=== PATIENT | male | born 1975 | race Caucasian/White ===

== ENCOUNTER → 2017-10-19 14:54 | Outpatient (POV) | payer OTHER, SELFPAY | PROVIDERS: Visit Provider Dermatology | DX: Z00.00 Encounter for general adult medical examination without abnormal findings (principal) ==

== ENCOUNTER → 2020-04-21 08:35 | Outpatient (POV) | payer OTHER, SELFPAY | PROVIDERS: Visit Provider Dermatology | DX: Z00.00 Encounter for general adult medical examination without abnormal findings (principal) ==

== ENCOUNTER 2021-01-02 23:14 | Emergency (ER) | payer BC, SELFPAY ==
[2021-01-02 23:25] VITALS: BMI 27.1
--- NOTE | 2021-01-02 23:34 | ECG_ITS ---
APPROVED REPORT Exam: Resting ECG HR:54 bpm ECG Measurements Heart Rate 54 AXES HI 130 P 24 QRSd 98 QRS 34 QT 424 T 41 QTc 402 Conclusion Sinus bradycardia Otherwise normal ECG Electronically signed by : Júnior Pollard MD 01/04/2021 17:59:09
[2021-01-02 23:40] LABS: Basophils # 0.1 K/mm3 (0-0.2); Eosinophils # 0.2 K/mm3 (0.0-0.4); Eosinophils % 1.3 % (0.1-12.0); Hematocrit 46.6 % (42.0-52.0); Hemoglobin 15.8 g/dL (14.1-18.0); Lymphocytes # 3.7 K/mm3 (0.7-4.5); Lymphocytes % 31.3 % (10-50); Mean Corpuscular HGB Conc 33.9 g/dL (31.8-35.4); Mean Corpuscular Hemoglobin 31.8 pg (27.0-31.2); Mean Corpuscular Volume 93.7 fl (80-94); Mean Platelet Volume 8.6 fl (7.4-10.4); Monocytes # 0.6 K/mm3 (0.1-1.0); Monocytes % 4.8 % (1.7-9.3); Neutrophils # 7.2 K/mm3 (1.8-7.8); Neutrophils % 61.5 % (37.0-80.0); Platelet Count 336 K/mm3 (142-424); Red Blood Count 4.97 M/mm3 (4.60-6.20); Red Cell Distribution Width 12.8 % (11.5-17.5); White Blood Count 11.7 K/mm3 (4.8-10.8)
[2021-01-02 23:45] VITALS: BP 137/88; PULSE 56; RESP 16; TEMP 36.6; O2SAT 98; BMI 29.1
[2021-01-02 23:45] LABS: Alanine Aminotransferase 40 U/L (12-78); Albumin Level 4.5 g/dl (3.5-5.0); Albumin/Globulin Ratio 1.5 (1.1-1.8); Alkaline Phosphatase 51 U/L (38-126); Anion Gap 10.6 mEq/L (5-15); Aspartate Amino Transferase 45 U/L (17-59); Bilirubin,Total 0.7 mg/dl (0.2-1.3); Blood Urea Nitrogen 15 mg/dl (9-20); Calcium 9.3 mg/dl (8.4-10.2); Carbon Dioxide 32 mmol/L (22.0-30.0); Chloride 103 mmol/L (98-107); Creatinine Clearance Estimated 169 mL/min (50-200); Estimated Glomerular Filt Rate 121 ml/min (>60); GFR (African American) 147 ML/MIN (>60); Glucose 95 mg/dl (74-100); Potassium 3.6 mmoL/L (3.5-5.1); Sodium 142 mmol/L (136-145); Total Protein,Serum 7.5 g/dl (6.3-8.2)
[2021-01-02 23:52] LABS: Lipase 56 U/L (23-300)
[2021-01-02 23:54] LABS: Amylase 85 U/L (30-110)
[2021-01-03] LABS: C-Reactive Protein 2.6 mg/L (0-4)
--- NOTE | 2021-01-03 00:01 | CT_ITS ---
PROCEDURE INFORMATION: Exam: CTA Chest With Contrast Exam date and time: 01/03/2021 12:01 AM Age: 45 years old Clinical indication: Other: Epigastric pain into chest; Additional info: Epigastric pain, R/O dissection TECHNIQUE: Imaging protocol: Computed tomographic angiography of the chest with contrast. 3D rendering (Not supervised by radiologist): MIP and/or 3D reconstructed images were created by the technologist. Radiation optimization: All CT scans at this facility use at least one of these dose optimization techniques: automated exposure control; mA and/or kV adjustment per patient size (includes targeted exams where dose is matched to clinical indication); or iterative reconstruction. Contrast material: ISOVUE 370; Contrast volume: 100 ml; Contrast route: INTRAVENOUS (IV); COMPARISON: No relevant prior studies available. FINDINGS: Pulmonary arteries: Normal. No pulmonary emboli. Aorta: The ascending thoracic aorta appears mildly ectatic, measuring up to 3.7 cm in caliber, although some motion artifact is also present (and measurements could be slightly affected). No dissection. Thyroid: Thyroid gland appears heterogeneous and may contain nodules, but is not well evaluated due to artifact. Lungs: Partially calcified 1.6 x 1.1 cm nodule or cluster of nodules in the right middle lobe, compatible with old granulomatous disease. No consolidation or evidence of pneumonia. Pleural spaces: Unremarkable. No pneumothorax. No pleural effusion. Heart: Normal heart size. No pericardial effusion. No appreciable coronary arterial calcification. Lymph nodes: Calcified subcarinal and right hilar lymph nodes compatible old granulomas disease. There are several prominent subcentimeter lymph nodes in the upper mediastinum near the inferior pole of the thyroid, nonspecific. Liver: Liver is enlarged measuring 19 cm in craniocaudal dimension. Gallbladder and bile ducts: Cholelithiasis. No gallbladder wall thickening. Bones/joints: Hemangioma in the T8 vertebral body. Soft tissues: Unremarkable. IMPRESSION: 1. Mild fusiform ectasia of the ascending thoracic aorta measuring up to 3.7 cm in caliber. No evidence of acute aortic syndrome. 2. No pulmonary embolus. 3. Possible thyroid nodularity, not well evaluated due to artifact. Given presence of several subcentimeter lymph nodes in the upper mediastinum near the inferior pole of the thyroid, further evaluation with nonemergent thyroid ultrasound is recommended. COMMENTS: Consistent with the [employer]'s Incidental Findings Committee white paper (J Am Aggie Radiol 2015): In patients aged 35 years and older with an incidental thyroid nodule equal to or greater than 1.[address], MRI or extrathyroidal US, further evaluation with dedicated thyroid US is recommended for patients with normal life expectancy and without comorbidities. For smaller nodules without suspicious features, no further evaluation or follow up is recommended.
--- NOTE | 2021-01-03 00:02 | XR_ITS ---
PROCEDURE INFORMATION: Exam: XR Chest Exam date and time: 01/03/2021 12:02 AM Age: 45 years old Clinical indication: Pain; Chest pressure; Additional info: Epigastric pain TECHNIQUE: Imaging protocol: XR of the chest. Views: 2 views. COMPARISON: CT ANGIO CHEST 01/03/2021 12:04 AM FINDINGS: Lungs: No airspace consolidation. No pulmonary edema. There is a 1 cm nodule in the right mid lung compatible with the granuloma seen on chest CT. Pleural spaces: No pleural effusion. No pneumothorax. Heart/Mediastinum: Normal heart size. Bones/joints: Unremarkable. IMPRESSION: No acute finding.
--- NOTE | 2021-01-03 00:03 | CT_ITS ---
PROCEDURE INFORMATION: Exam: CT Abdomen And Pelvis With Contrast Exam date and time: 01/03/2021 12:03 AM Age: 45 years old Clinical indication: Abdominal pain; Epigastric; Additional info: Epigastric pain TECHNIQUE: Imaging protocol: Computed tomography of the abdomen and pelvis with contrast. Radiation optimization: All CT scans at this facility use at least one of these dose optimization techniques: automated exposure control; mA and/or kV adjustment per patient size (includes targeted exams where dose is matched to clinical indication); or iterative reconstruction. Contrast material: ISOVUE; Contrast volume: 100 ml; Contrast route: IV; COMPARISON: No relevant prior studies available. FINDINGS: Liver: Liver is enlarged measuring 19 cm in craniocaudal dimension. Liver appears homogeneous, and does not meet attenuation criteria for steatosis on this study. Gallbladder and bile ducts: Cholelithiasis. No gallbladder wall thickening. No biliary dilation. Pancreas: Unremarkable. No main pancreatic duct dilation. Spleen: Mild splenomegaly. Spleen measures slightly greater than 12 cm in craniocaudal dimension. Adrenal glands: Unremarkable. Kidneys and ureters: A few subcentimeter low-attenuation left renal lesions are too small for definitive evaluation, but statistically most likely benign cysts. No hydronephrosis. No urinary tract calculi are seen. Stomach and bowel: No small bowel dilation or obstruction. [id number] amount of solid stool throughout the colon, without evidence of wall thickening. Appendix: Appendectomy. Intraperitoneal space: No pneumoperitoneum. No ascites. Vasculature: No abdominal aortic aneurysm. No dissection. Scattered mild atherosclerotic plaque. Lymph nodes: Subtle haziness of the central mesentery, with a few prominent, but subcentimeter lymph nodes, suggesting mild mesenteric panniculitis. No pathologically enlarged lymph nodes in the abdomen/pelvis. Urinary bladder: Bladder is partially decompressed. Reproductive: Unremarkable as visualized. Bones/joints: No acute fracture. Mild lower lumbar degenerative changes. Soft tissues: Small fat containing right inguinal and umbilical hernias. IMPRESSION: 1. No acute abnormality or specific etiology for symptoms identified. 2. Cholelithiasis. 3. Hepatomegaly. COMMENTS: Consistent with the [employer]'s Incidental Findings Committee white paper (J Am Aggie Radiol 2018): Any incidental renal lesion less than 1 cm or classified as too small to characterize, or any incidental cystic renal lesion characterized as simple-appearing, is likely benign. No follow-up imaging is recommended for these lesions per consensus recommendations based on imaging criteria.
[2021-01-03 00:07] LABS: Erythrocyte Sedimentation Rate 12 mm/hr (0-15)
[2021-01-03 00:10] LABS: Troponin I < 0.01 ng/ml (0.00-0.034)
[2021-01-03 00:14] LABS: Procalcitonin 0.057 ng/mL (0.0-2.0)
--- NOTE | 2021-01-03 01:25 | HMH.EDNVD ---
ED Disposition Clinical Impression: Abdominal pain Qualifiers: Abdominal location: epigastric Qualified Code(s): R10.13 - Epigastric pain Cholelithiasis Qualifiers: Cholelithiasis location: gallbladder Cholecystitis presence: without cholecystitis Biliary obstruction: without biliary obstruction Qualified Code(s): K80.20 - Calculus of gallbladder without cholecystitis without obstruction Disposition: Home, Self-Care Condition on Discharge: Good Instructions: DI for Gallstones Additional Instructions: see pcp for gb and gerd eval Prescriptions: Pantoprazole Sodium [Protonix 40mg tablet] 40 mg PO DAILY #30 tab Transmission Status: Pending to [facility] Referrals: Tigre Montgomery [Primary Care Provider] - - Critical Care Critical Care Time: No Attestation: On 01/02/21, the high probability of a clinically significant, sudden or life threatening deterioration of the following system(s) required my full and direct attention, intervention and personal management. The time I documented below is in addition to time spent performing reported procedures but includes the following listed in this critical care notation. Medical Decision Making - Medical Records Medical records reviewed: Yes: I reviewed the patient's medical records. - Seb Inquiry Pt receiving controlled substance: No Vital Signs: 01/02/21 23:45 Temperature 97.8 F Temperature Source Oral Pulse Rate [Apical] 56 L Respiratory Rate 16 Blood Pressure [Right Arm] 137/88 Blood Pressure Mean [Right Arm] 104 Blood Pressure Source [Right Arm] Automatic Cuff Blood Pressure Position [Right Arm] Sitting 02 Sat by Pulse Oximetry 98 Oxygen Delivery Method Room Air - Lab Data Lab results reviewed: Yes: I reviewed the patient's lab results. Lab Results 01/02/21 23:30: WBC 11.7 H, RBC 4.97, Hgb 15.8, Hct 46.6, MCV 93.7, MCH 31.8 H, MCHC 33.9, RDW 12.8, Plt Count 336, MPV 8.6, Neut % (Auto) 61.5, Lymph % (Auto) 31.3, [place] % (Auto) 4.8, Eos % (Auto) 1.3, Baso % (Auto) 1.0, Neut # (Auto) 7.2, Lymph # (Auto) 3.7, [place] # (Auto) 0.6, Eos # (Auto) 0.2, Baso # (Auto) 0.1 10/16/21 23:30: Sodium 142, Potassium 3.6, Chloride 103, Carbon Dioxide 32 H, Anion Gap 10.6, BUN 15, Creatinine 0.70, Estimated Creat Clear 169, Estimated GFR 121, Est GFR ( Amer) 147, Glucose 95, Calcium 9.3, Total Bilirubin 0.7, AST 45, ALT 40, Alkaline Phosphatase 51, Total Protein 7.5, Albumin 4.5, Globulin 3.0, Albumin/Globulin Ratio 1.5 01/02/21 23:30: ESR 12 01/02/21 23:30: Troponin I < 0.01, C-Reactive Protein 2.6, Amylase 85, Procalcitonin 0.057 01/02/21 23:30: Lipase 56 Result diagrams: 01/02/21 23:30 01/02/21 23:30 Orders (Tests/Meds): ED MEDICATIONS Generic Name Dose Route Start Last Admin Trade Name Freq PRN Reason Stop Dose Admin Sodium Chloride 8 ml 01/02/21 23:37 Sodium Chloride 0.9% 10ml Vial IV 02/01/21 23:36 NEEDED PRN dilute pepcid Discontinued Medications Generic Name Dose Route Start Last Admin Trade Name Freq PRN Reason Stop Dose Admin Famotidine 20 mg 01/02/21 23:37 01/02/21 23:39 Famotidine 20mg/2ml Vial IV 01/02/21 23:38 20 mg ONCE ONE Administration Iopamidol 100 ml 01/03/21 00:29 01/03/21 00:30 Iopamidol-370 (76%);100ml Bottle IV 01/03/21 00:30 100 ml ONCE ONE Administration Metoclopramide HCl 10 mg 01/02/21 23:37 01/02/21 23:39 Metoclopramide Hcl 10mg/2ml Vial IVP 01/02/21 23:38 10 mg ONCE ONE Administration Sodium Chloride 40 ml 01/03/21 00:29 01/03/21 00:30 0.9 % Sodium Chloride 50 Ml Vial IV 01/03/21 00:30 40 ml ONCE ONE Administration Sodium Chloride 10 ml 01/03/21 00:29 01/03/21 00:30 Sodium Chloride 0.9% 10ml Syr (Rad Only) IV 01/03/21 00:30 10 ml ONCE ONE Administration ORDERS Category Date Time Status Troponin I Q3H Lab 01/03/21 02:45 Ordered Troponin I Q3H Lab 01/03/21 05:45 Ordered - Radiology Data #1 Image(s): Chest
[2021-01-03 01:47] VITALS: BP 124/82; PULSE 60; RESP 16; TEMP 36.6; O2SAT 98
== END 2021-01-03 01:48 | disposition home or self-care (01) ==
PROVIDERS: Emergency Provider Emergency Medicine; PCP Family Medicine
DX: K80.20 Calculus of gallbladder without cholecystitis without obstruction (principal)
CPT/HCPCS: 71046; 71275; 74177; 80053; 82150; 83690; 84145; 84484; 85025; 85651; 86140; 93005; 96374; 96375; 99283; Q9967

== ENCOUNTER → 2021-03-29 08:17 | Outpatient (CLI) | payer BC, SELFPAY | PROVIDERS: PCP Family Medicine; Visit Provider Nurse Practitioner | DX: Z20.822 Contact with and (suspected) exposure to COVID-19 (principal) | CPT/HCPCS: C9803; U0003; U0005 ==

== ENCOUNTER → 2021-04-14 07:05 | Outpatient (CLI) | payer BC, SELFPAY ==
--- NOTE | 2021-04-14 07:16 | US_ITS ---
FINAL REPORT CLINICAL HISTORY: EPIGASTRIC PAIN,GALLSTONES FINDINGS: ULTRASOUND RIGHT UPPER QUADRANT Sonographic imaging of the right upper quadrant was obtained. The pancreas is partially obscured. The liver is unremarkable. There are multiple gallstones. There is no gallbladder wall thickening. There is no biliary ductal dilatation. The common duct is dilated at 9 mm. Limited images of the right kidney are unremarkable. IMPRESSION: Multiple gallstones in the gallbladder. 9 mm dilated common duct. Choledocholithiasis cannot be excluded. Reviewed, Interpreted and Dictated by Aaron Bradley MD Transcribed by Meg Small Authenticated by Aaron Bradley MD on 04/14/2021 11:33:21 AM [facility]
[2021-04-14 07:51] LABS: Basophils # 0.1 K/mm3 (0-0.2); Basophils % 1.5 % (0.1-2.0); Eosinophils # 0.1 K/mm3 (0.0-0.4); Eosinophils % 1.9 % (0.1-12.0); Hematocrit 50.8 % (42.0-52.0); Hemoglobin 16.6 g/dL (14.1-18.0); Lymphocytes # 3.5 K/mm3 (0.7-4.5); Lymphocytes % 48.5 % (10-50); Mean Corpuscular HGB Conc 32.6 g/dL (31.8-35.4); Mean Corpuscular Hemoglobin 31.6 pg (27.0-31.2); Mean Corpuscular Volume 96.9 fl (80-94); Mean Platelet Volume 8.4 fl (7.4-10.4); Monocytes # 0.5 K/mm3 (0.1-1.0); Monocytes % 6.4 % (1.7-9.3); Neutrophils % 41.6 % (37.0-80.0); Platelet Count 333 K/mm3 (142-424); Red Blood Count 5.25 M/mm3 (4.60-6.20); Red Cell Distribution Width 12.4 % (11.5-17.5); White Blood Count 7.1 K/mm3 (4.8-10.8)
[2021-04-14 08:41] LABS: Alanine Aminotransferase 19 U/L (12-78); Albumin Level 4.6 g/dl (3.5-5.0); Albumin/Globulin Ratio 1.7 (1.1-1.8); Alkaline Phosphatase 47 U/L (38-126); Amylase 49 U/L (30-110); Anion Gap 9.3 mEq/L (5-15); Aspartate Amino Transferase 21 U/L (17-59); Blood Urea Nitrogen 15 mg/dl (9-20); Calcium 9.3 mg/dl (8.4-10.2); Carbon Dioxide 34 mmol/L (22.0-30.0); Chloride 103 mmol/L (98-107); Chol/HDL Ratio 7.6 (1-3.5); Cholesterol 212 mg/dl (140-200); Estimated Glomerular Filt Rate 104 ml/min (>60); GFR (African American) 126 ML/MIN (>60); Globulin 2.7 g/dL (1.3-3.2); Glucose 92 mg/dl (74-100); HDL Cholesterol 28 mg/dl (40-60); Lipase 52 U/L (23-300); Potassium 4.3 mmoL/L (3.5-5.1); Sodium 142 mmol/L (136-145); Total Protein,Serum 7.3 g/dl (6.3-8.2); Triglycerides 127 mg/dl (30-150); VLDL Cholesterol 25 mg/dL (0-40)
[2021-04-14 08:52] LABS: Direct LDL Cholesterol 155.45 mg/dL (100-129)
== END ==
PROVIDERS: PCP Family Medicine; Visit Provider Family Medicine
DX: R10.13 Epigastric pain (principal); K80.20 Calculus of gallbladder without cholecystitis without obstruction; Z13.220 Encounter for screening for lipoid disorders
CPT/HCPCS: 36415; 76705; 80053; 80061; 82150; 83690; 85025

== ENCOUNTER → 2021-05-28 13:36 | Outpatient (CLI) | payer BC, SELFPAY ==
[2021-05-28 14:47] LABS: Basophils # 0.1 K/mm3 (0-0.2); Basophils % 1.5 % (0.1-2.0); Eosinophils # 0.1 K/mm3 (0.0-0.4); Eosinophils % 1.4 % (0.1-12.0); Hematocrit 46.6 % (42.0-52.0); Hemoglobin 15.4 g/dL (14.1-18.0); Lymphocytes # 2.8 K/mm3 (0.7-4.5); Lymphocytes % 46.4 % (10-50); Mean Corpuscular HGB Conc 33.1 g/dL (31.8-35.4); Mean Corpuscular Hemoglobin 30.7 pg (27.0-31.2); Monocytes # 0.3 K/mm3 (0.1-1.0); Monocytes % 5.4 % (1.7-9.3); Neutrophils # 2.7 K/mm3 (1.8-7.8); Neutrophils % 45.2 % (37.0-80.0); Platelet Count 323 K/mm3 (142-424); Red Blood Count 5.01 M/mm3 (4.60-6.20); Red Cell Distribution Width 12.6 % (11.5-17.5)
[2021-05-28 15:49] LABS: Alanine Aminotransferase 21 U/L (12-78); Albumin Level 4.5 g/dl (3.5-5.0); Albumin/Globulin Ratio 1.8 (1.1-1.8); Alkaline Phosphatase 47 U/L (38-126); Aspartate Amino Transferase 21 U/L (17-59); Bilirubin,Total 0.8 mg/dl (0.2-1.3); Blood Urea Nitrogen 11 mg/dl (9-20); Calcium 8.9 mg/dl (8.4-10.2); Carbon Dioxide 31 mmol/L (22.0-30.0); Chloride 103 mmol/L (98-107); Estimated Glomerular Filt Rate 121 ml/min (>60); GFR (African American) 147 ML/MIN (>60); Globulin 2.5 g/dL (1.3-3.2); Glucose 81 mg/dl (74-100); Sodium 140 mmol/L (136-145)
== END ==
PROVIDERS: Visit Provider Surgery
DX: Z01.812 Encounter for preprocedural laboratory examination (principal); Z11.52 Encounter for screening for COVID-19; K80.20 Calculus of gallbladder without cholecystitis without obstruction
CPT/HCPCS: 36415; 80053; 85025; C9803; U0003; U0005

== ENCOUNTER 2021-05-31 06:06 | Day surgery (SDC) | payer BC, SELFPAY ==
[2021-05-26 09:45] VITALS: BMI 27.6
[2021-05-31] VITALS (12 sets, daily range): BP systolic 107–126; BP diastolic 64–84; PULSE 53–73; RESP 16–18; TEMP 36.1–43; O2SAT 93–97
--- NOTE | 2021-05-31 07:01 | P.PN_ITS ---
[facility] Anesthesia Checklist - Patient Identification Patient Identification: Arm Band - Structural Data Admitted From: Home Planned Operative Procedure/s: AlannaDana jade Consent for Planned Operative Procedure(s) Verified: Yes - NPO Status Verified Time NPO: 00:00 - Additional verifications Anesthesia Reactions: No Hx Blood Transfusions: No Blood Transfusion Reaction: No - Airway Assessment C-Spine Mobility Assessed: Yes TMJ Mobility Assessed: Yes Dentition: Good Dentition - Neurological Assessment Level of Consciousness: Awake Hx Seizures: No Numbness or tingling in extremities: No - Anesthesia Plan Anesthesia Risk discussed: Yes Anesthesia Plan: Verified ASA Class: I Anesthesia Type: General [facility] History I have reviewed the patient's past medical history: Yes Medical History: Reports:: Gastroesophageal Reflux Disease(GERD) (Occasional) Denies:: Cancer, Diabetes Mellitus Type 1, Diabetes Mellitus Type 2, Internal Pacemaker, MRSA, Seizures *Have you ever received a pneumonia vaccine?: No *Have you received a flu vaccine this season?: Yes Other Medical History: Denies: Blood Transfusion Reaction Anesthesia experience/problems:: Slow to wake up Other Surgeries: No: Pacemaker Amputation: No Fractures: No - *Social History Last grade of school completed: High school graduate Smoking Status: Never smoker Alcohol Intake: never Alcohol Intake Frequency:: holidays/special occasions only Substance Use Type: denies use *Occupational Status:: employed *Travel in the last 8 weeks: None Family Hx:: No significant family history
--- NOTE | 2021-05-31 08:31 | XR_ITS ---
FINAL REPORT CLINICAL HISTORY: CHOLANGIOGRAM FLUORO TIME-0.23 FINDINGS: INTRAOPERATIVE CHOLANGIOGRAM CLINICAL HISTORY: Cholecystectomy FINDINGS: The opacified biliary tree is unremarkable for obstruction or stricture. No filling defects are seen indicate choledocholithiasis. Contrast is noted draining into small bowel. IMPRESSION: Normal intraoperative cholangiogram. Reviewed, Interpreted and Dictated by Esau Mcghee III, MD Transcribed by Allie Ku Authenticated by Esau Mcghee III, MD on 05/31/2021 09:36:34 AM [facility]
--- NOTE | 2021-05-31 09:02 | HMH.OPNOTE ---
Date of procedure: 05/31/21 Pre-op Diagnosis:: Symptomatic gallstones Post-op Diagnosis:: Same Procedure performed:: Laparoscopic cholecystectomy with intraoperative cholangiogram Laparoscopic liver biopsy Surgeon:: Esau Yanez MD STRAP MAKING MACHINE OPERATOR:: Rajan Erazo Anesthesia: GETA Estimated blood loss (mL): 15 Clinical Note:: Patient is a very pleasant 45-year-old male referred by Dr. Stewart for gallbladder. He had been seen in the emergency department on 01/03/2021 with acute onset of epigastric and right upper quadrant pain. This was quite severe at that time. He was given IV Protonix and he did have relief. He did have a CT scan done at that time which revealed no acute finding, cholelithiasis, hepatomegaly. He had a similar episode in February. He does have some relief with Protonix. He had undergone outpatient ultrasound on 04/14/2021. This revealed Multiple gallstones in the gallbladder. 9 mm dilated common duct. Choledocholithiasis cannot be excluded. He does state that he had approximately a 40 pound weight loss. Patient was seen and examined in the office. Options are discussed. He wished to pursue cholecystectomy. His liver function tests were unremarkable. However, given the generous bile duct plan was made to proceed with laparoscopic cholecystectomy, possible open, with intraoperative cholangiogram. Operative findings:: He had a distended gallbladder with stones. There were some omental adhesions to the gallbladder. He had multiple tiny nodules on the liver consistent with fatty nodules. However a biopsy was performed. Operative note:: Consent was obtained and patient was taken to the operating room. He was positioned in supine position. General anesthesia was induced via endotracheal tube. Abdomen was prepped and draped in standard surgical fashion. Subumbilical skin incision was made and while performing abdominal wall lift Veress needle was inserted. CO2 pneumoperitoneum was achieved to 15 mmHg. 11 mm optical trocar was inserted at the umbilicus. Intraperitoneal contents were visualized. He was positioned in reverse Trendelenburg and left side down. A couple 5 mm trochars were inserted in the right upper abdomen. 10 mm trocar was inserted in the epigastrium. There was some tiny nodules on the surface of the liver likely consistent with fatty nodules. Gallbladder was grasped retracted anteriorly and superiorly over the dome of the liver. Omental adhesions to the gallbladder were taken down using blunt dissection. Infundibulum of the gallbladder was grasped retracted laterally. Blunt dissection was carried out the neck of the gallbladder bluntly incising the visceral peritoneum. The cystic duct and cystic artery were clearly identified and isolated. Decision was made to proceed with intraoperative cholangiogram. Cystic duct was clipped proximal to the gallbladder. Small incision was made in the right upper quadrant through which taut cholangiocatheter was introduced. Small incision was made in the cystic duct. Cholangiocatheter was manipulated into the cystic duct where it was secured with a Hemoclip. Intraoperative cholangiogram was performed which revealed normal ductal anatomy although cystic duct was somewhat prominent. No obvious filling defect or obstruction. Patient was then repositioned. Cholangiocatheter was removed. Cystic duct was multiply clipped and sharply divided. Cystic artery was carefully coagulated with OMER ultrasonic robotic josemanuel and divided. Gallbladder was dissected free from the liver in a retrograde fashion using OMER ultrasonic harmonic josemanuel. Gallbladder was placed within an Endo Catch retrieval device removed from the peritoneal cavity via the umbilical trocar site which required some minor extension of the fascial incision for delivery. Decision was made to perform biopsy of liver nodule. These appeared likely benign. A couple of these were dissected free from surrounding
--- NOTE | 2021-05-31 09:12 | P.PN_ITS ---
[facility] Anesthesia Record Part I Intake, IV Amount: 1,100 Estimated blood loss (mL): 10 Urine output (mL): 0 Blood Pressure: 126/84 SaO2: 93 Pulse Rate: 64 Respiratory Rate: 16 Temperature: 99.9 F Patient is:: Drowsy, Stable Stable to PACU at:: 09:10
--- NOTE | 2021-05-31 18:29 | P.PN_ITS ---
[facility] Anesthesia Record Part II Discharge Time: 09:40 Destination: Home PACU nurse assessment reviewed?: Yes Patient Condition:: Good Anesthesia Complications:: None none Swallowing reflex intact?: Yes Cyanosis?: No Blood Pressure: 115/76 Pulse Rate: 59 Temperature: 97.2 F Mental Status: Alert & Oriented Pain level:: 5 Nausea and/or vomitting:: None Intake, IV Amount: 0
== END 2021-05-31 10:40 | disposition home or self-care (01) ==
LOC: OR 06:07
PROVIDERS: PCP Family Medicine; Visit Provider Surgery
PROC: 0FT44ZZ Resection of Gallbladder, Percutaneous Endoscopic Approach (ICD-10-PCS; CPT 47562; principal; 2021-05-31 07:30)
DX: K81.1 Chronic cholecystitis (principal); K76.0 Fatty (change of) liver, not elsewhere classified; K21.9 Gastro-esophageal reflux disease without esophagitis
CPT/HCPCS: 47563; 47379; 74300; 96374; J2405; J2710

== ENCOUNTER → 2021-09-28 09:31 | Outpatient (POV) | payer BC, SELFPAY | PROVIDERS: Visit Provider Dermatology | DX: Z00.00 Encounter for general adult medical examination without abnormal findings (principal) ==

== ENCOUNTER 2023-07-25 11:02 | Outpatient (POV) | payer BC, SELFPAY | END 2023-07-25 23:59 | disposition home or self-care (01) | LOC: SC 11:02 | PROVIDERS: PCP Family Medicine; Visit Provider Dermatology | DX: Z00.00 Encounter for general adult medical examination without abnormal findings (principal) ==

== ENCOUNTER 2024-09-30 07:57 | Day surgery (SDC) | payer BC, SELFPAY ==
[2024-09-27 11:57] VITALS: BMI 31.1
--- NOTE | 2024-09-30 07:48 | P.HP_ITS ---
History of Present Illness *Admission Date: 09/30/24 *Reason for visit:: Screening for colon cancer *History of present illness: Mr. Mccord is a 49-year-old gentleman who is here for initial screening colonoscopy. The examination is deemed medically necessary for screening colonoscopy. The patient has been seen, interviewed and examined prior to the procedure by both myself and the anesthesia provider. [facility] Disclaimer: The information contained in this section may have been updated after the patient was seen, as this information can be updated by other users. Medical History Hyperlipidemia Surgical History History of tonsillectomy History of appendectomy Family History Father Family history of stroke Mother Family history of cancer Social History Smoking Status: Never smoker alcohol intake: former substance use type: denies use current occupational status: employed Travel in the last 8 weeks?: None caffeine: Yes Have you lived/traveled outside [place] in past 30 days?: No Contact w/someone who lives/traveled outside US past 30 days?: No Exposure to someone with infectious disease in past 14 days?: No Do you have a fever (greater than 100.4 F or 38 C)?: No Have you tested positive for COVID-19?: No Exposed to someone with COVID-19 in past 14 days?: No Do you have a sore throat?: No Do you have a cough?: No Do you have any weakness?: No Are you experiencing any nausea/vomitting?: No Do you have any diarrhea?: No Are you experiencing any unusual bleeding?: No Do you have any muscle aches/pain?: No Do you have any abdominal pain?: No Are you experiencing loss of taste or smell?: No Other Medical History Have you received the Flu Vaccine for this season: Yes Have you received the Pneumonia Vaccine: No Review of Systems Review of Systems Review of systems (narrative): Negative *Cardiovascular Comments: Negative *Gastrointestinal Comments: Negative *Genitourinary Comments: Negative *Musculoskeletal Comments: Negative *Neurologic Comments: Negative Meds Home Medications and Allergies Home Medications ?Medication ?Instructions ?Recorded ?Confirmed ?Type sodium,potassium,mag sulfates 17.5 See Rx Instructions PO .COMPLEX 09/13/24 09/27/24 Rx gram-3.13 gram-1.6 gram oral soln #354 mL (Suprep Bowel Prep Kit) New Prescriptions to Start Prescriptions: Allergies Allergy/AdvReac Type Severity Reaction Status Date / Time No Known Allergies Allergy Verified 09/30/24 08:16 Exam Data for Last 24 hours I & O for Last 24 hours: Intake & Output 09/27/24 09/28/24 09/29/24 09/30/24 23:59 23:59 23:59 23:59 Weight 230 lb *Routine HEENT Exam Head: Present normocephalic Eye: Present EOMI and PERRL ENT: Present mucous membranes moist *Routine Neck Exam Neck: Present supple *Routine Respiratory Exam Respiratory: Present CTA bilaterally *Routine Cardiovascular Exam Cardiovascular: Present RRR *Routine Abdominal Exam Abdominal: Present soft and normoactive bowel sounds; Absent tenderness *Routine Rectal Exam Rectal:: deferred *Routine Genitalia Exam Genitalia:: deferred *Routine Extremities Exam Extremities: Absent cyanosis, clubbing or edema *Routine Skin Exam Skin: Present warm; Absent rash *Routine Neurological Exam Neurological: Present alert and oriented X3 Assessment and Plan *Assessment and plan (1) Screening for colon cancer: Status: Acute Category: Medical Code(s): Z12.11 - Encounter for screening for malignant neoplasm of colon Plan A/P: 1. Screening for colon cancer is the preprocedural diagnosis. The patient will be anesthetized/sedated using MAC sedation. The patient has been seen and examined. Cardiac and lung assessment prior to the examination is stable. Proceed with planned screening colonoscopy.
[2024-09-30 08:18] VITALS: BP 117/88; PULSE 63; RESP 18; TEMP 36.1; O2SAT 98
[2024-09-30] MEDS: LACTATED RINGERS 1000ML 1,000 ML 50 ML IV (08:35)
--- NOTE | 2024-09-30 08:48 | EXP.ANES.CKL ---
[facility] Disclaimer: The information contained in this section may have been updated after the patient was seen, as this information can be updated by other users. Medical History Hyperlipidemia Surgical History History of tonsillectomy History of appendectomy Family History Father Family history of stroke Mother Family history of cancer Social History Smoking Status: Never smoker alcohol intake: former substance use type: denies use current occupational status: employed Travel in the last 8 weeks?: None caffeine: Yes Have you lived/traveled outside US in past 30 days?: No Contact w/someone who lives/traveled outside US past 30 days?: No Exposure to someone with infectious disease in past 14 days?: No Do you have a fever (greater than 100.4 F or 38 C)?: No Have you tested positive for COVID-19?: No Exposed to someone with COVID-19 in past 14 days?: No Do you have a sore throat?: No Do you have a cough?: No Do you have any weakness?: No Are you experiencing any nausea/vomitting?: No Do you have any diarrhea?: No Are you experiencing any unusual bleeding?: No Do you have any muscle aches/pain?: No Do you have any abdominal pain?: No Are you experiencing loss of taste or smell?: No [facility] Anesthesia Checklist Patient Identification Patient Identification: Verbal (Name & ) Structural Data Admitted From: Home Planned Operative Procedure/s: colonoscopy NPO Status Verified Time NPO: 00:00 Additional verifications Anesthesia Reactions: No Hx Blood Transfusions: No Blood Transfusion Reaction: No Airway Assessment Mallampati Score:: Class II C-Spine Mobility Assessed: Yes TMJ Mobility Assessed: Yes Dentition: Good Dentition Neurological Assessment Level of Consciousness: Awake, Alert and Appropriate Anesthesia Plan Anesthesia Risk discussed: Yes Anesthesia Plan: Verified ASA Class: II Anesthesia Type: MAC
--- NOTE | 2024-09-30 09:03 | P.PCN_ITS ---
[facility] Procedure Note Date: 09/30/24 Time: 09:24 Procedure Note:: Colonoscopy Procedure Report: Colonoscopy Endoscopist: Armando Dhaliwal II, MD Referring physician: Tigre Stewart MD Date of Procedure: September 30, 2024 Equipment: Olympus 190 variable stiffness pediatric colonoscope Sedation: MAC sedation Indication: Mr. Mccord is a 49-year-old gentleman who is here for initial screening colonoscopy. The patient reports no abdominal pain, weight loss, change in his bowel habits or rectal bleeding. He does state that his maternal grandmother had colon cancer at an older age. Procedure: Prior to the procedure, a history and physical exam was performed, and patient's medications and allergies were reviewed. The risks, benefits and alternatives of the sedation and procedure were discussed with the patient. All questions were answered and informed consent was obtained. The patient was brought to the procedure room. Patient identification and proposed procedure were verified by the physician and the nurse. The patient was placed in a left lateral decubitus position and the scope was passed under direct vision. Throughout the procedure, the patient's blood pressure, pulse, and oxygen saturations were monitored continuously. The colonoscopy was accomplished without difficulty. The patient tolerated the procedure well. Findings: On digital rectal examination there was normal rectal tone. There were no external hemorrhoids. The prostate was 2+, smooth, soft, symmetric without nodules. The colonoscope was introduced through the anal canal to the rectum and advanced to the cecum. The ileocecal valve and appendiceal orifice were identified. The scope was advanced a short distance into the ileum which appeared grossly normal. The scope was then withdrawn into the colon. The cecum, ascending and transverse colon and mucosa were grossly normal. There were scatte red diverticuli throughout the descending and sigmoid colon (LEFT colon). The rectum itself was normal. Upon retroflexion within the rectum there were grade 1-2 internal hemorrhoids. The preparation was excellent throughout with [place] Preparation Score of 9. The cecal time was 12 minutes. Impression: 1. Left-sided diverticulosis 2. Grade 1-2 internal hemorrhoids Plan: The patient will not require surveillance colonoscopy again for 10 years by ACS guidelines. I would recommend psyllium bulking fiber supplementation on a maintenance basis.
[2024-09-30 09:28] VITALS: BP 115/69; PULSE 64; RESP 18; TEMP 36.1; O2SAT 93
[2024-09-30 09:38] VITALS: BP 120/73; PULSE 60; RESP 18; O2SAT 98
[2024-09-30 09:48] VITALS: BP 123/79; PULSE 50; RESP 16; O2SAT 97
[2024-09-30 09:58] VITALS: BP 127/87; PULSE 54; RESP 18; TEMP 36.1; O2SAT 99
== END 2024-09-30 09:58 | disposition home or self-care (01) ==
PROVIDERS: PCP Family Medicine; Visit Provider Internal Medicine Gastroenterology
PROC: 0DJD8ZZ Inspection of Lower Intestinal Tract, Via Natural or Artificial Opening Endoscopic (ICD-10-PCS; CPT 45378; principal; 2024-09-30 09:30)
DX: Z12.11 Encounter for screening for malignant neoplasm of colon (principal); K57.30 Diverticulosis of large intestine without perforation or abscess without bleeding; K64.1 Second degree hemorrhoids; Z90.49 Acquired absence of other specified parts of digestive tract
CPT/HCPCS: 45378; J2003; J2704; J7120